=== PATIENT | female | born 2005 | race Two or more races ===

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

== ENCOUNTER 2024-04-21 13:51 | Outpatient (REF) | payer MEDICAID, SELFPAY ==
--- NOTE | ~2024-04-21 | XR_ITS ---
CLINICAL HISTORY: LEFT KNEE PAIN Exam: AP, lateral, tunnel, and sunrise views of the left knee. Comparison: None. Findings: Bony alignment is anatomic. No fracture or joint effusion. Joint spaces are well preserved. Impression: Negative left knee radiographs. This document has been electronically signed by: Sami Retana MD on 04/22/2024 10:04:43
--- NOTE | ~2024-04-21 | XR_ITS ---
CLINICAL HISTORY: LEFT HIP PAIN 2 view left hip Comparison: None Findings: The bones are intact. No significant arthritic change. The soft tissues are unremarkable. IMPRESSION: No acute findings. This document has been electronically signed by: Murray Moore MD on 04/22/2024 08:45:25
--- OUTSIDE RECORDS SUMMARY | 2024-04-21 15:59 | XMS_ITS | Clinical Summary ---
Author Organization [employer] Address [address] [place] [address] Care Team Providers Care Correspondent Name Role Phone [facility] Primary Care Provider [phone] Allergies No known active allergies Medications polyethylene glycol, PEG, 3350 (Glycolax, Miralax) powderIndication s:Constipation, unspecified constipation type Take 17 g by mouth if needed each day (constipation). 510 g Active L norgest/e.estrad iol-e.estrad (Seasonique) 0.15-0.03 &0.01 MG tablet tabletIndication s:Dysmenorrhea,M enorrhagia with regular cycle Take 1 tablet by mouth Once per day. Take continuously to not have period, skip last 7 pills of pack. 91 tablet 4 4 Active Additional Information Patient not taking.Reported on 04/18/2024 Active Problems Problem Noted Date Diagnosed Date Moderate episode of recurrent major depressive d isorder 07/27/2023 Menorrhagia with regular cycle 07/27/2023 Dysmenorrhea 07/27/2023 Encounters Date Type Department Care Team Description 04/18/2024 11:20 AM EST Office Visit [facility] [address] [place] [address] [facility] Left hip pain (Primary Dx); Left-sided low back pain with left-sided sciatica, unspecified chronicity; Chronic pain of left knee 04/16/2024 Travel from Last 3 Months Family History Medical History Relation Name Comments No Known Problems Father Coronary artery disease Maternal Grandmother No Known Problems Mother Cancer Neg Hx Relation Name Status Comments Father Alive Maternal Grandmother Mother Alive Social History Tobacco Use Types Packs/Day Years Used Date Smoking Tobacco: Never Passive Smoke Exposure: Current Smokeless Tobacco: Never Alcohol Use Standard Drinks/Week Comments Never 0 (1 standard drink = 0.6 oz pur e alcohol) Depression Answer Date Recorded Patient Health Questionnaire-9 Score 15 07/27/2023 Patient Health Questionnaire-9 Score 15 07/27/2023 Last PHQ-9: Questionnaire Data Not on file 0 07/27/2023 Housing Stability Answer Date Recorded What is your housing situation today? I have gregg irene 07/27/[address] you li ve. Do you have problems with any of the following? None of the above 07/27/2023 Food Insecurity Answer Date Recorded Within the past 12 months, y ou worried that your food would run out before you got money to buy more: Never True 07/27/2023 Within the past 12 months,th e food you bought just didn't last and you didn't have enough money to get more: Never True Transportation Answer Date Recorded In the past 12 months, has l ack of transportation kept you from medical appts, meetings, work or from getting things needed for daily living? No 07/27/2023 Utilities Answer Date Recorded In the past 12 months, has t he electric, gas, oil or water company threatened to shut off services in your home? No 07/27/2023 Depression Answer Date Recorded Patient Health Questionnaire-2 Score 3 07/27/2023 Comments No Sex and Gender Information Value Date Recorded Sex Assigned at Female 2023 12:16 PM EST Legal Sex Female 2:45 PM EDT Gender Identity Female 2023 12:16 PM EST Sexual Orientation Straight 2023 12 :16 PM EST Last Filed Vital Signs Vital Sign Reading Time Taken Comments Blood Pressure 123/85 04/18/2024 11:05 AM EST Pulse 79 04/18/2024 11:05 AM EST Temperature 37.4 ??C (99.4 ??F) 04/18/2024 1 1:05 AM EST Respiratory Rate 19 04/18/2024 11:0 5 AM EST Oxygen Saturation 98% 04/18/2024 11: 05 AM EST Inhaled Oxygen Concentration - - Weight 59.3 kg (130 lb 11.7 oz) 025 11:05 AM EST Height 160.7 cm (5' 3.25 ) 07/27/2023 8:14 AM ED T Body Mass Index 22.98 07/27/2023 8:14 AM EDT Plan of Treatment Health Maintenance Due Date Last Done Comments Alcohol/Substance Use Screening 2016 Family Planning (PISQ) 01/02/2019 HPV Vaccines (1 - 3-dose series) 01/02/2019 Hepatitis C Screening 01/02/2022 DTaP/Tdap/Td Vaccines (1 - Tdap) 01/02/2023 Hepatitis B Vaccines (1 of 3 - 19+ 3-dose series) 01/02/2023 COVID-19 Vaccine ( - 2023-2 5 season) 2023 09/26/2021, 09/04/2020, 08/07/2020 Influenza Vaccine (#1) 2023 Depression Monitoring (PHQ-9) 01/26/2024, 07/27/2023 Chlamydia and Gonorrhea Screening 07/26/2024 07/27/2023 Depression Screening 07/26/2024 07/27/2023, 07/27/2023 SDOH Screening 07/26/2024 07/27/2023 Tobacco Screening 04/18/2025 04/18/2024 Zoster Vaccines (1 of 2) 01/02/2054 RSV Patients and Patients Aged 60 years or older (1 - 1-dose 75+ series) 01/02/2079 HIV Screening Completed 10/05/2023 HIB Vaccines Aged Out No longer eligi ble based on patient's age to complete this topic Hepatitis A Vaccines Aged Out No long er eligible based on patient's age to complete this topic IPV Vaccines Aged Out No longer eligi ble based on patient's age to complete this topic Meningococcal Vaccine Aged Out No daphne any eligible based on patient's age to complete this topic Pneumococcal Vaccine: Pediatrics (0 to 5 Years) and At-Risk Patients (6 to 49) Years) Aged Out No longer eligible b ased on patient's age to complete this topic RSV under 20 months Aged Out No longe r eligible based on patient's age to complete this topic Rotavirus Vaccines Aged Out No longer eligible based on patient's age to complete this topic Procedures Procedure Name Priority Date/Time Associated Diagnosis Comments HIV P24 ANTIGEN/ANTIBODY WITH REFLEX TO CONFIRMATION Routine 10/05/2023 9:52 AM EDT Screen for STD (sexually transmitted disease) CHLAMYDIA/N. GONORRHOEAE RNA, TMA, UROGENITAL Routine 07/27/2023 9:00 AM EDT from Last 3 Months or Most Recently Relevant to Health Maintenance Results * HIV p24 Antigen/Antibody With Reflex to Confirmation (10/05/2023 9:52 AM EDT) HIV Ab/p24 Ag Screen Non Reactive Non Reactive [facility] Comment: HIV-1/HIV-2 antibodies and HIV-1 p24 antigen were NOT detected. There is no laboratory evidence of HIV infection. HIV Negative Blood Venous blood specimen / Unknown 10/05/2023 9:52 AM EDT 10/05/2023 Narrative [facility] 1 - 10/06/2023 10:05 AM EDT Performed at: ??01 - [facility] [address], [address], [place], [place] [id number] Lumber Straightened: Harry Hwang MD, Phone: ??[phone] [facility] LAB BLOOD ORDERABLES Shavon l Result [facility] * Chlamydia/N. Gonorrhoeae RNA, TMA, Urogenitial (07/27/2023 9:00 AM EDT) Chlamydia trachomatis RNA, TMA, Urogenital Negative Negative [facility] 1 Neisseria gonorrhoeae RNA, TMA, Urogenital Negative Negative [facility] 1 07/27/2023 9:00 AM EDT 07/27/2023 Narrative [facility] 1 - 08/03/2023 10:06 AM EDT Performed at: ??01 - [facility] [address], [address], [place], [place] ??[id number] L[employer] Straightened: Harry Hwang MD, Phone: ??[phone] Terri Michael [facility] LAB MICROBIOLOGY - GENERA L ORDERABLES Final Result [facility] 1 from Last 3 Months or Most Recently Relevant to Health Maintenance Insurance [facility] [address] [place] [address] [facility] [employer] Member Subscriber Plan / Payer (Ef fective 2022-Present) Name:Frieda Franklin Relation to Subscriber:Child Name:MAYRA FRANKLIN Date of :1976 (Home) Address: [address] [place] [address] Payer ID:Not on file Group ID:Not on file Type:Not on file Address: [address] Atten: [place] [address] Care Teams Correspondent Relationship Specialty Start Date End Date Terri Michael FNP [address] [address] PCP - General Family Medicine 06/22/23
--- OUTSIDE RECORDS SUMMARY | 2024-04-21 15:59 | XMS_ITS | Encounter Summary ---
Author Organization [employer] Address [address] [facility] 7t [place] [address] Care Team Providers Care Credit Report Checker Name Role Phone Terri Michael Primary Care Provider [phone] [phone] Reason for Referral * Consultation (Routine) - Pending Review Specialty Diagnoses / Procedures Referred By William jara Referred To Contact Orthopaedic Surgery Diagnoses Left hip pain Left-sided low back pain with left-sided sciatica, unspecified chronicity Chronic pain of left knee Terri Michael FNP [address] [place], [place] Phone: tel: fax: [facility] [address] [place] [address] Phone: tel: Referral ID Status Reason Start Date Expiration Date Visits Requested Visits Authorized [id number] Pending Review Specialty Services Required 04/18/2024 04/18/2025 1 1 * Imaging (Routine) - Pending Review Specialty Diagnoses / Procedures Referred By William jara Referred To Contact Radiology Diagnoses Left hip pain Procedures XR Hip 2 or 3 Views Left Terri Michael FNP [address] [place], [place] Phone: tel: fax: [facility], [address] Phone: tel: fax: Referral ID Status Reason Start Date Expiration Date V isits Requested Visits Authorized [id number] Pending Review 04/18/2024 04/18/2025 1 1 * Imaging (Routine) - Pending Review Specialty Diagnoses / Procedures Referred By William jara Referred To Contact Radiology Diagnoses Left hip pain Chronic pain of left knee Procedures XR Knee 4+ Views Left Terri Michael FNP [address] [place] [address] Phone: tel: fax: [facility], [address] Phone: tel: fax: Referral ID Status Reason Start Date Expiration Date V isits Requested Visits Authorized [id number] Pending Review 04/18/2024 04/18/2025 1 1 Reason for Visit * Reason Comments Knee Pain Encounter Details Date Type Department Care Team (Late st Contact Info) Description 04/18/2024 11:20 AM EST Office Visit [place] [facility] [address] [place] [address] Terri Michael FNP [address] [place] [address] Left hip pain (Primary Dx); Left-sided low back pain with left-sided sciatica, unspecified chronicity; Chronic pain of left knee Social History Tobacco Use Types Packs/Day Years [...] your housing situation today? I have gregg bonilla 07/27/[address] you li [...] the past 12 months, has t he [employer], gas, oil or water company threatened to shut off services in your home? No 07/27/2023 Depression Answer Date Recorded Patient Health Questionnaire-2 Score 3 07/27/2023 Comments No Sex and Gender Information Value Date Recorded Sex Assigned at Female 2023 12:16 PM EST Legal Sex Female 2:45 PM EDT Gender Identity Female 2023 12:16 PM EST Sexual Orientation Straight 2023 12 :16 PM EST documented as of this encounter Last Filed Vital Signs Vital Sign Reading [...] 11.7 oz) 025 11:05 AM EST Height - - Body Mass Index 22.98 07/27/2023 8:14 AM EDT documented in this encounter Patient Instructions * Patient Instructions* TEMO Bello - 04/18/2024 11:20 AM EST Go for xrays (no appointment needed). [facility]. documented in this encounter Progress Notes * TEMO Bello - 04/18/2024 11:20 AM EST Frieda Franklin 2005 [id number] Chief Complaint: Chief Complaint Patient presents with Knee Pain HPI: Frieda [place] ( Frieda ) is a 19 y.o. female here today for Knee Pain. Here with Mom. Chronic left knee pain since she fell in freshman year of high school. Never treated. Has had pain with walking for long periods since. Over the last 1-2 months, having left hip/groin and low back pain. Having some numbness and tingling in left leg. Ibuprofen and heat helps some. Patient Active Problem List Diagnosis Date Noted Moderate episode of recurrent major depressive disorder ([facility]) 07/27/2023 Menorrhagia with regular cycle 07/27/2023 Dysmenorrhea 07/27/2023 Past Medical History: Diagnosis Date Anxiety Depression Current Outpatient Medications on File Prior to Visit Medication Sig Dispense Refill polyethylene glycol, PEG, 3350 (Glycolax, Miralax) powder Take 17 g by mouth if needed each day (constipation). 510 g 0 L norgest/e.estradiol-e.estrad (Seasonique) 0.15-0.03 &0.01 MG tablet tablet Take 1 tablet by mouth Once per day. Take continuously to not have period, skip last 7 pills of pack. (Patient not taking: Reported on 04/18/2024) 91 tablet 4 No current facility-administered medications on file prior to visit. No Known Allergies Past Surgical History: Procedure Laterality Date NO PAST SURGERIES Family History Problem Relation Name Age of Onset No Known Problems Mother No Known Problems Father Coronary artery disease Maternal Grandmother Cancer Neg Hx Social History Tobacco Use Smoking status: Never Passive exposure: Current Smokeless tobacco: Never Vaping Use Vaping status: Some Days Substances: Nicotine Substance Use Topics Alcohol use: Never Drug use: Never Social History Substance and Sexual Activity Sexual Activity Yes Partners: Female, Male control/protection: Condom Male Social History Social History Narrative Born in [place], moved to the [place] at age 11. Lives with Mom and Dad. Graduated high school. In college. Review of Symptoms: Review of Systems Constitutional: Negative for chills and fever. Gastrointestinal: Negative for constipation and diarrhea. Genitourinary: Negative for difficulty urinating. Musculoskeletal: Positive for arthralgias, back pain and myalgias. Neurological: Positive for numbness. Physical Exam: BP 123/85 (BP Location: Right arm, Patient Position: Sitting, BP Cuff Size: Adult) Pulse 79 Temp 99.4 ??F (37.4 ??C) (Temporal) Resp 19 Wt 130 lb 11.7 oz (59.3 kg) LMP 03/02/2024 (Exact Date) SpO2 98% BMI 22.98 kg/m?? Physical Exam Constitutional: General: She is not in acute distress. Appearance: Normal appearance. Pulmonary: Effort: Pulmonary effort is normal. Musculoskeletal: Lumbar back: Tenderness (left) present. Decreased range of motion. Positive left straight leg raisetest. Left hip: Tenderness (over great trochanter) present. Decreased range of motion. Decreased strength(flexion). Left knee: No swelling or crepitus. Normal range of motion. No tenderness. Neurological: Mental Status: She is alert and oriented to person, place, and time. Motor: Weakness (left LE strength 4/5) present. Gait: Gait normal. Deep Tendon Reflexes: Reflex Scores: Patellar reflexes are 2+ on the right side and 2+ on the left side. Achilles reflexes are 2+ on the right side and 2+ on the left side. Psychiatric: Speech: Speech normal. Thought Content: Thought content normal. ASSESSMENT AND PLAN 1. Left hip pain (Primary) Chronic left knee pain, now with left hip and back pain c/w with sciatica. Also with hip tenderness. Xrays ordered. Referral to ortho. Continue ibuprofen. - Referral to Orthopaedic Surgery - XR Knee 4+ Views Left - XR Hip 2 or 3 Views Left 2. Left-sided low back pain with left-sided sciatica, unspecified chronicity - Referral to Orthopaedic Surgery 3. Chronic pain of left knee - Referral to Orthopaedic Surgery - XR Knee 4+ Views Left Follow up if symptoms worsen or fail to improve. Terri Michael, MSN, HOME SERVICE TECHNICIAN-C [address] [address] documented in this encounter Plan of Treatment Scheduled Orders Name Type Priority Associated Diagnoses Orde r Schedule XR Knee 4+ Views Left Imaging Routine Left hip pain Chronic pain of left knee Expected: 04/18/2024, Expires: 04/18/2025 XR Hip 2 or 3 Views Left Imaging Routine Left hip pain Expected: 04/18/2024, Expires: 10/16/2024 Scheduled Referrals Name Type Priority Associated Diagnoses Orde r Schedule Referral to Orthopaedic Surgery Outpatient Referral Routine Left hip pain Left-sided low back pain with left-sided sciatica, unspecified chronicity Chronic pain of left knee Expected: 04/18/2024 (Approximate), Expires: 04/18/2025 documented as of this encounter Visit Diagnoses Diagnosis Left hip pain- Primary Pain in joint, pelvic region and thigh Left-sided low back pain with left-sided sciatica, unspecified chronicity Chronic pain of left knee documented in this encounter Additional Health Concerns Assessment Noted Time PHQ-9 Depression Total Score: 15 024 8:21 AM EDT documented as of this encounter Care Teams Credit Report Checker Relationship Specialty Start Date End Date Terri Michael FNP [address] [place] [address] PCP - General Family Medicine 06/22/23 documented as of this encounter
--- OUTSIDE RECORDS SUMMARY | 2024-04-21 15:59 | XMS_ITS | Encounter Summary ---
Author Organization [employer] Address [address] [facility] 7t [place] [address] Care Team Providers Care Turner And Former Automatic Name Role Phone Terri Michael PLASTIC SEWER Primary Care Provider [phone] Encounter Details Date Type Department Care Team (Latest Contact Info) Description 04/16/2024 Travel Social History Tobacco Use Types Packs/Day Years [...] PM EST documented as of this encounter Plan of Treatment Not on file documented as of this encounter Visit Diagnoses Not on filedocumented in this encounter Additional Health Concerns Assessment Noted Time PHQ-9 Depression Total Score: 15 024 8:21 AM EDT documented as of this encounter Care Teams Turner And Former Automatic Relationship Specialty Start Date End Date Terri Michael, TEMO [address] [place] [address] PCP - General Family Medicine 06/22/23 documented as of this encounter
== END 2024-04-21 13:52 | disposition home or self-care (01) ==
LOC: HO.XRAY 13:51
PROVIDERS: PCP Nurse Practitioner; Visit Provider Nurse Practitioner
DX: M25.552 Pain in left hip (principal); M25.562 Pain in left knee; G89.29 Other chronic pain
CPT/HCPCS: 73502; 73564

== ENCOUNTER → 2024-04-21 14:00 | Outpatient (BNV) | payer MEDICAID, SELFPAY | PROVIDERS: PCP Nurse Practitioner; Visit Provider Radiology Diagnostic Radiology | DX: M25.562 Pain in left knee (principal); M25.552 Pain in left hip | CPT/HCPCS: 73502; 73564 ==

== ENCOUNTER 2024-06-09 09:16 | Outpatient (REF) | payer OTHER, SELFPAY ==
--- OUTSIDE RECORDS SUMMARY | 2024-06-10 10:10 | XMS_ITS | Clinical Summary ---
Author Organization [employer] Address [address] [facility] 7t [place] [address] Care Team Providers Care Digital Marketing Analyst Name Role Phone [facility] Primary Care Provider [phone] [phone] Allergies No known active allergies Medications polyethylene [...] 04/18/2024 11:20 AM EST Office Visit [place] [facility] [address] [place] [address] [facility] Left hip pain (Primary Dx); Left-sided [...] AM EDT Performed at: ??01 - [facility] [place] [address], [address], [place], [place] ??[id number] Sock Turner: Harry Hwang MD, Phone: ??[phone] [facility] LAB BLOOD ORDERABLES Shavon l Result [facility] 1 * Chlamydia/N. Gonorrhoeae RNA, TMA, Urogenitial (07/27/2023 9:00 AM EDT) Chlamydia trachomatis RNA, TMA, Urogenital Negative Negative [facility] 1 Neisseria gonorrhoeae RNA, TMA, Urogenital Negative Negative [facility] 1 07/27/2023 9:00 AM EDT 07/27/2023 Narrative [facility] 1 - 08/03/2023 10:06 AM EDT Performed at: ??01 - [facility] [address], [address], [place], [place] ??[id number] Sock Turner: Harry Hwang MD, Phone: ??[phone] [facility] LAB MICROBIOLOGY - GENERA L ORDERABLES Final Result [facility] 1 from Last 3 Months or Most Recently Relevant to Health Maintenance Insurance [facility] , [address] [place] [address] [employer] Member Subscriber Plan / Payer (Ef fective 2022-Present) Name:Frieda Franklin Relation to Subscriber:Child Name:AMYRA FRANKLIN Date of :1977 (Home) Address: [address] [place] [address] Payer ID:Not on file Group ID:Not on file Type:Not on file Address: [address] Atten: [place] [address] Care Teams Digital Marketing Analyst Relationship Specialty Start Date End Date Terri Michael, WOODWIND REEDS CUTTER [address] [place] [address] PCP - General Family Medicine 06/22/23
== END 2024-06-09 09:17 | disposition home or self-care (01) ==
LOC: HO.HOSX 09:16
PROVIDERS: Visit Provider Physician Assistant
DX: Z13.89 Encounter for screening for other disorder (principal)

== ENCOUNTER 2024-06-09 09:38 | Outpatient (AMB) | payer OTHER, SELFPAY ==
--- NOTE | 2024-06-09 09:58 | MHC.OFFVIS ---
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 Patient reports her pain presented about 5-6 years ago that recently got worse. States she had a fall that she was never was evaluated. She has pain that radiates through her entire leg to her toes, states at times she will have knee pain or hip pain. She describes her discomfort as a stabbing sensation. Finds the use of a knee sleeve helps. No previous tx. 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 She states his pain has been present for several years. She notices discomfort along the lateral aspect of her hip which radiates down the leg into the knee. She has discomfort with leaning on the left side and also sleeping on the left side. She has occasional discomfort with going up and downstairs and sitting for long periods of time. [facility] Medical History (Updated 06/09/24 @ 10:19 by Sera Jernigan PA-C) No known health problems Social History (Updated 06/09/24 @ 10:01 by Antonia Patel [facility]) Patient Tobacco Use Status: Current someday Tobacco user Current occupational status: unemployed Review of Systems Const All systems reviewed & are unremarkable except as noted in HPI and below Physical Exam Vital Signs: BMI result Body Mass Index 23.0 Const General: cooperative and no acute distress Orientation/consciousness: patient oriented x3 Resp Effort & Inspection: normal respiratory effort and able to speak in complete sentences Cardio Peripheral pulses: Peripheral pulses 2+ throughout Neuro General: patient oriented x3 Extrem Other: Left hip normal to inspection. No pain with ROM of the hip. Pain along the greater trochanter. No pain with hip flexion or abduction.There is no tenderness along the si joint, Negative SLR. NVI. Results Reviewed Results Reviewed: Previous x-rays of the left knee and left hip are negative for any acute or chronic abnormalities. Assessment & Plan Assessment & Plan (1) Chondromalacia of left patella: Code(s): M22.42 - Chondromalacia patellae, left knee Category: Medical (2) Gluteal tendinitis of left buttock: Code(s): M76.02 - Gluteal tendinitis, left hip Category: Medical Plan We discussed options which include PT and NSAIDs. She will proceed with PT and NSAIDs. If symptoms persist she will contact our office, otherwise, prn. Orders: Orders PT Evaluation and Treatment Today M22.42 - Chondromalacia patellae, left knee, M76.02 - Gluteal tendinitis, left hip Medications: Discontinued amoxicillin-pot clavulanate 875-125 mg (Augmentin) Discontinued Reason: Patient no longer taking 1 tab PO BID 10 days 20 tabs 0RF Coding Level of Care Code New Pt Level 3 (07947) Complex EM visit Add On G2211 Diagnoses Chondromalacia of left patella M22.42 Gluteal tendinitis of left buttock M76.02
[2024-06-09 10:03] VITALS: BMI 23.0
--- OUTSIDE RECORDS SUMMARY | 2024-06-09 10:45 | XMS_ITS | Clinical Summary ---
Author Organization [employer] Address [address] [facility] 7t [place] [address] Care Team Providers Care Short Order Cook Name Role Phone [facility] Primary Care Provider [phone] [phone] Allergies No known active allergies Medications polyethylene [...] 04/18/2024 11:20 AM EST Office Visit [place] [address] [place] [address] [facility] Left hip pain (Primary Dx); Left-sided low [...] 08/07/2020 Influenza Vaccine (#1) 2023 Depression Monitoring 01/26/2024 07/27/2023 , 07/27/2023 Chlamydia and Gonorrhea Screening 07/26/2024 07/27/2023 [...] AM EDT Performed at: ??01 - [facility] [place] [address], [address], [place], [place] [id number] Press Officer: Harry Hwang MD, Phone: ??[phone] [facility] LAB BLOOD ORDERABLES Shavon l Result [facility] 1 * Chlamydia/N. Gonorrhoeae RNA, TMA, Urogenitial (07/27/2023 9:00 AM EDT) Chlamydia trachomatis RNA, TMA, Urogenital Negative Negative [facility] 1 Neisseria gonorrhoeae RNA, TMA, Urogenital Negative Negative [facility] 1 07/27/2023 9:00 AM EDT 07/27/2023 Narrative [facility] 1 - 08/03/2023 10:06 AM EDT Performed at: ??01 - [facility] [place] [address], [address], [place], [place] ??[id number] Press Officer: Harry Hwang MD, Phone: ??[phone] [facility] LAB MICROBIOLOGY - GENERA L ORDERABLES Final Result [facility] 1 from Last 3 Months or Most Recently Relevant to Health Maintenance Insurance [facility] , [address] [place] [address] [facility] Member Subscriber Plan / Payer (Ef fective 2022-Present) Name:Frieda Franklin Relation to Subscriber:Child Name:MAYRA FRANKLIN Date of :1976 (Home) Address: [address] [place] [address] Payer ID:Not on file Group ID:Not on file Type:Not on file Address: [address] Atten: [place] [address] Care Teams Short Order Cook Relationship Specialty Start Date End Date Terri Michael, CIVIL LABORATORY TECHNICIAN [address] [place] [address] PCP - General Family Medicine 06/22/23
== END 2024-06-09 10:21 | disposition home or self-care (01) ==
LOC: HO.HOS 09:38
PROVIDERS: PCP Nurse Practitioner; Visit Provider Physician Assistant
DX: M22.42 Chondromalacia patellae, left knee (principal); M76.02 Gluteal tendinitis, left hip
CPT/HCPCS: 99203

== ENCOUNTER 2024-08-12 12:30 | Outpatient (AMB) | payer OTHER, SELFPAY ==
[2024-08-12 12:50] VITALS: BMI 23.0
--- NOTE | 2024-08-12 12:50 | MHC.OFFVIS ---
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 Patient was referred by Katie Michael of [facility], patient was advised to take Ibuprofen. Patient states that February of 2024 is when the pain in the lower back started to flair up. Patient states that in high school is when she fell which caused her lower left side pain. Patient reports that she does have numbness and tingling from hip down to knee. She reports that she never had physical therapy, it was offered but she did not attend. Allergies No Known Allergies Allergy (Verified 08/12/24 12:56) Medication List - Last Reconciled 08/12/24 by Nay Miranda MD No Known Home Meds HPI Comments Details: Reviewed PCP notes. Reported to have started as a left knee injury during freshman of high school year. Has now started to affect left lower back and hip pain early 2024. Still thinks left knee is the main issue. Denies swelling. Sometimes gives out. Back pain is always associated with the knee pain. Denies numbness. Reports pins/needles left knee, left lower back and left ankle. Recent left knee x-ray within normal. Recent left hip x-ray within normal. 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 [facility] Medical History (Updated 08/12/24 @ 13:13 by Nay Miranda MD) Patellofemoral pain syndrome of left knee No known health problems Social History (Updated 06/09/24 @ 10:01 by Antonia Patel [facility]) Patient Tobacco Use Status: Current someday Tobacco user Current occupational status: unemployed Review of Systems Const All systems reviewed & are unremarkable except as noted in HPI and below Physical Exam Vital Signs: BMI result Body Mass Index 23.0 Constitutional: Patient appears to be in no acute distress, well nourished and well developed. MSK: No specific abnormalities found on inspection of the spine and all extremities. Lumbar ROM was full. Tender in left SI joint. Bilateral hip, knee and ankle ROM WNL. Tender along left ITB. No ligamentous laxity or crepitant. No increased effusion. No joint line tenderness. Positive tenderness over left patella. Patellar grind test is positive. Anterior drawer test is negative. Kris test is negative. Posterior drawer test is negative. Valgus and varus stress tests are negative. Edna test is negative. Strength is 5/5 in all muscle groups tested. No increased tone noted. Neurological: Neurologic examination of the upper and lower extremities was nonfocal with intact sensation, muscle stretch reflexes and without focal motor deficits . Lauren?s negative bilaterally. Babinski was down going bilaterally. Clonus was negative. Gait is non-antalgic without loss of balance. Results Reviewed Results Reviewed: Ordering Physician: Katie Michael APRN Date of Service: 04/21/24 Procedure(s): XR hip LT min 2V Accession Number(s): [id number] cc: Katie Michael APRN~ CLINICAL HISTORY: LEFT HIP PAIN 2 view left hip Comparison: None Findings: The bones are intact. No significant arthritic change. The soft tissues are unremarkable. IMPRESSION: No acute findings. This document has been electronically signed by: Murray Moore MD on 04/22/2024 08:45:25 Ordering Physician: Katie Michael APRN Date of Service: 04/21/24 Procedure(s): XR knee LT 4V Accession Number(s): [id number] cc: Katie Michael APRN~ CLINICAL HISTORY: LEFT KNEE PAIN Exam: AP, lateral, tunnel, and sunrise views of the left knee. Comparison: None. Findings: Bony alignment is anatomic. No fracture or joint effusion. Joint spaces are well preserved. Impression: Negative left knee radiographs. This document has been electronically signed by: Sami Retana MD on 04/22/2024 10:04:43 I reviewed records from the following: PCP Ortho Assessment & Plan Assessment & Plan (1) Patellofemoral pain syndrome of left knee: Code(s): M22.2X2 - Patellofemoral disorders, left knee Category: Medical (2) Iliotibial band syndrome, left leg: Code(s): M76.32 - Iliotibial band syndrome, left leg Category: Medical (3) Sacroiliac joint dysfunction of left side: Code(s): M53.3 - Sacrococcygeal disorders, not elsewhere classified Category: Medical Plan Showing signs of left patellofemoral syndrome caused imbalance, leading to left ITB tightness and SI joint dysfunction. Changing the patellar sleeve she is wearing into something with more support for the patellar tendon. Referring to PT to work on patellofemoral pain, tight ITB and SI joint dysfunction. Discussed with patient that is important that she continues home exercise program after PT. No indication for other imaging at this time. Assessment and plan discussed with patient, and patient was agreeable. All questions were answered thoroughly. Follow up 3 months or after PT. Nay [place] MD, BAM Board Certified, [place] Board of Physical Medicine and Rehabilitation (ABPMR) Board Certified, [place] Board of Electrodiagnostic Medicine (ABEM) Orders: Orders PT Evaluation and Treatment Today M22.2X2 - Patellofemoral disorders, left knee, M53.3 - Sacrococcygeal disorders, not elsewhere classified, M76.32 - Iliotibial band syndrome, left leg Coding Level of Care Code New Pt Level 4 (62261) Diagnoses Patellofemoral pain syndrome of left knee M22.2X2 Iliotibial band syndrome, left leg M76.32 Sacroiliac joint dysfunction of left side M53.3
--- OUTSIDE RECORDS SUMMARY | 2024-08-12 14:08 | XMS_ITS | Clinical Summary ---
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 Name Role Phone Terri Michael [facility] Primary Care Provider [phone] Allergies No known active allergies Medications polyethylene [...] Menorrhagia with regular cycle 07/27/2023 Dysmenorrhea 07/27/2023 Family History Medical History Relation Name Comments [...] HPV Vaccines (1 - 3-dose series) 01/02/2019 Meningococcal B Vaccine (1 o f 2 - Standard) 2020 Hepatitis C Screening 01/02/2022 DTaP/Tdap/Td Vaccines (1 - Tdap) 01/02/2023 Hepatitis B Vaccines (1 of 3 - 19+ 3-dose series) 01/02/2023 COVID-19 Vaccine (4 - 2023-2 5 season) 2023 09/26/2021, 09/04/2020, 08/07/2020 Depression Monitoring 01/26/2024 07/27/2023 , 07/27/2023 Chlamydia and Gonorrhea Screening 07/26/2024 07/27/2023 SDOH Screening 07/26/2024 07/27/2023 Influenza Vaccine (Season Ended) 2024 Disability Screening 04/16/2025 04/16/2024 Tobacco Screening 04/18/2025 04/18/2024 Zoster Vaccines (1 [...] Years) and At-Risk Patients (6 to 49) Years Aged Out No longer eligible b ased [...] AM EDT Performed at: ??01 - [facility] [address], [address], [place], [place] [id number] Test Facility Engineer: Harry Hwang MD, Phone: ??[phone] [facility] LAB BLOOD ORDERABLES Shavon l Result Performing Organization Address [facility] Co de Phone Number [facility] 1 * Chlamydia/N. Gonorrhoeae RNA, TMA, Urogenitial (07/27/2023 9:00 AM EDT) Chlamydia trachomatis RNA, TMA, Urogenital Negative Negative [facility] 1 Neisseria gonorrhoeae RNA, TMA, Urogenital Negative Negative [facility] 1 07/27/2023 9:00 AM EDT 07/27/2023 Narrative [facility] 1 - 08/03/2023 10:06 AM EDT Performed at: ??01 - [facility] [address], [address], [place] ??[id number] Test Facility Engineer: Harry Hwang MD, Phone: ??[phone] [facility] LAB MICROBIOLOGY - GENERA L ORDERABLES Final Result Performing Organization Address City/[facility] Co de Phone Number [facility] 1 from Last 3 Months or Most Recently Relevant to Health Maintenance Insurance [employer] [facility] [facility] , [address] [place] [address] [employer] Care Teams Ornamental Iron Worker Helper Relationship Specialty Start Date End Date [facility] [address] [place] [id number] PCP - General Family Medicine 06/22/23
== END 2024-08-12 13:31 | disposition home or self-care (01) ==
LOC: HO.HOS 12:31
PROVIDERS: PCP Nurse Practitioner; Visit Provider Physical Medicine & Rehabilitation
DX: M22.2X2 Patellofemoral disorders, left knee (principal); M76.32 Iliotibial band syndrome, left leg; M53.3 Sacrococcygeal disorders, not elsewhere classified
CPT/HCPCS: 99203

== ENCOUNTER 2024-10-23 13:00 | Outpatient (RCR) | payer OTHER, SELFPAY ==
--- NOTE | 2024-09-04 14:45 | MHC.PT.EP ---
[facility] [place] Office [place] Office [place] Office [address] Simran Tello [address] [phone] F: [phone] F: [phone] F: [phone] F: [phone] Physical Therapy Plan of Care Date of Evaluation: 09/04/24 Date of Surgery: n/a Diagnosis: patellofemoral disorder L knee, sacrococcygeal disorder Assessment: Patient is a 19 year old female presenting to PT with complaints of pain in L knee, hip, and back. Pt reports onset of pain began February 2024 due to a fall from high school. She presents today with impairments in pain, lumbar ROM, hip ROM, LLE strength, core strength. 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 Pt expresses longterm goal of reducing pain, and is motivated to work towards this in PT. Clinical presentation today is most consistent with signs and sx associated with L hip, knee, back apin and pt will benefit from skilled PT 2 week x 4 weeks to address the following problems and impairments noted upon evaluation: pain, lumbar ROM, hip ROM, LLE strength, core strength. These problems limit the patient with the following functional activities: ambulating, stair negotiation, ADLs, bending, lifting. The prescribed treatment plan of care is medically necessary. Co-morbidities of none were identified and taken into considerations of plan of care. Pt was educated on HEP, role of PT, prognosis, POC. Frequency and Duration: The patient will be seen 2 x week x 4 weeks Short Term Goals: Pt will demonstrate centralization of sx in 2 weeks. Pt will demonstrate improved LLE strength by 1/3 grade in 2 weeks. Pt will demonstrate to move through her available hip, knee, lumbar ROM in available range with min to no pain. Partner Cco Goals: Pt will demonstrate improved Juan A score by 10% in 4 weeks for improved functional mobility. Pt will demonstrate ability to ambulate with min to no pain in 4 weeks for return to PLOF. Pt will demonstrate ability to bend and lift with min to no pain in 4 weeks for return to PLOF. Treatment Plan: Modalities to reduce pain, spasms and effusion. Manual therapy to restore motion and function. Therapeutic exercise to improve strength and flexibility. Neuromuscular re-education for posture and balance. Therapeutic activities to return to functional activities of daily living. Electronically signed by: Cornelia Fernandez, PT, DPT, ATC Please sign and return to therapist. Thank you for your referral.
--- NOTE | 2024-10-23 13:44 | MHC.PT.DC ---
[facility] [place] Office [place] Office [place] Office [address] Simran Tello [address] [phone] F: [phone] F: [phone] F: [phone] F: [phone] Physical Therapy Discharge Report Diagnosis: patellofemoral disorder L knee, sacrococcygeal disorder Date of Surgery: n/a Date of Evaluation: 09/04/24 Date of Discharge: 10/23/24 Treatments to Date: 8 Cancellations to Date: 0 No Shows to Date: 0 Discharge Status: Independent with HEP Recommend MD Follow-up Discharge Summary: 10/23/2024: Pt has ongoing pain that continues to fluctuate without any specific pattern. She is able to complete her exercises without significant increase in pain but it does not appear that her pain relief is carrying over to function. At this time max benefits of PT have been provided and skilled PT is no longer indicated. I recommend continuing with HEP at home to maintain gains made thus far and if pain continues to limit function then recommend following up with referring provider. She is in agreement with d/c and plan. Electronically signed by: Cornelia Fernanedz, PT, DPT, ATC Please sign and return to therapist. Thank you for your referral.
== END 2024-10-23 13:45 | disposition home or self-care (01) ==
LOC: HO.PTCHIC 13:00
PROVIDERS: PCP Nurse Practitioner; Visit Provider Physical Medicine & Rehabilitation
DX: M53.3 Sacrococcygeal disorders, not elsewhere classified (principal); M76.32 Iliotibial band syndrome, left leg; M22.2X2 Patellofemoral disorders, left knee
CPT/HCPCS: 97110; 97161

== ENCOUNTER 2024-11-13 10:52 | Outpatient (AMB) | payer OTHER, SELFPAY ==
--- NOTE | 2024-11-13 10:54 | MHC.OFFVIS ---
Vital Signs 11/13/24 10:58 Height 5 ft 3 in Weight 130 lb BMI 23.0 Intake Visit Reasons: OV-LT sided low back pain w/left sided sciatica Intake Note: Frieda is a 19 year old female who presents today as a left sided low back pain w/left sided sciatica. At last visit we referred her to physical therapy and work on at home exercises. At today's visit she states that physical therapy is completed and she feels that she plateaued . Patient states that due to schooling she is doing her at home exercises as needed. She states that she feels better but the pain is now tolerable. Allergies No Known Allergies Allergy (Verified 11/13/24 10:58) Medication List - Last Reconciled 11/13/24 by Nay Miranda MD No Known Home Meds HPI Comments Details: Reviewed PCP notes. Reported to have started as a left knee injury during freshman of high school year, during dance. No MRI back then. Has now started to affect left lower back and hip pain early 2024. Still thinks left knee is the main issue. Denies swelling. Sometimes gives out. Back pain is always associated with the knee pain. Denies numbness. Reports pins/needles left knee, left lower back and left ankle. Recent left knee x-ray within normal. Recent left hip x-ray within normal. 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 Last seen 08/12/24. Still has left hip and left knee pain daily, 6/10, increasing with activity. Goes to [employer]. Finished PT, doing own exercises. 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 MSK: No specific abnormalities found on inspection of the spine and all extremities. Lumbar ROM was full. Tender in left SI joint. Left knee: No ligamentous laxity or crepitant. No increased effusion. Tender on left lateral joint line. Positive tenderness over left patella. Patellar grind test is positive. Anterior drawer test is negative. Kris test is negative. Posterior drawer test is negative. Valgus stress test positive pain laterally. Edna test is negative. Strength is 5/5 in all muscle groups tested. No increased tone noted. Neurological: Neurologic examination of the upper and lower extremities was nonfocal with intact sensation, muscle stretch reflexes and without focal motor deficits . Babinski was down going bilaterally. Clonus was negative. Gait is non-antalgic without loss of balance. Results Reviewed Results Reviewed: Ordering Physician: Katie Michael APRN Date of Service: 04/21/24 Procedure(s): XR hip LT min 2V Accession Number(s): [id number] cc: Katie Michael APRN~ CLINICAL HISTORY: LEFT HIP PAIN 2 view left hip Comparison: None Findings: The bones are intact. No significant arthritic change. The soft tissues are unremarkable. IMPRESSION: No acute findings. This document has been electronically signed by: Murray Moore MD on 04/22/2024 08:45:25 Ordering Physician: Katie Michael APRN Date of Service: 04/21/24 Procedure(s): XR knee LT 4V Accession Number(s): [id number] cc: Katie Michael APRN~ CLINICAL HISTORY: LEFT KNEE PAIN Exam: AP, lateral, tunnel, and sunrise views of the left knee. Comparison: None. Findings: Bony alignment is anatomic. No fracture or joint effusion. Joint spaces are well preserved. Impression: Negative left knee radiographs. This document has been electronically signed by: Sami Retana MD on 04/22/2024 10:04:43 I reviewed records from the following: PCP Ortho Assessment & Plan Assessment & Plan (1) Derangement of lateral meniscus of left knee: Code(s): M23.301 - Other meniscus derangements, unspecified lateral meniscus, left knee Category: Medical (2) Patellofemoral pain syndrome of left knee: Code(s): M22.2X2 - Patellofemoral disorders, left knee Category: Medical (3) Sacroiliac joint dysfunction of left side: Code(s): M53.3 - Sacrococcygeal disorders, not elsewhere classified Category: Medical Plan Left knee pain, initially thought as patellofemoral syndrome. X-ray normal. However has not gotten better with PT. This has become chronic now. I wonder if she actually injured her left lateral meniscus. Patient had undergone adequate conservative management including PT and bracing without improvement of condition. It would be reasonable to obtain further imaging such as MRI. An MRI would help rule out any serious condition, guide treatment and assess prognosis for recovery. Left SI joint tenderness, which I think is biomechanics from left knee pain. No signs of lumbar radiculopathy. Assessment and plan discussed with patient, and patient was agreeable. All questions were answered thoroughly. Follow up after MRI. Nay Miranda MD, BAM Board Certified, [place] [employer] and Rehabilitation (ABPMR) Board Certified, [place] Board of Electrodiagnostic Medicine (ABEM) Orders: Orders MR knee LT wo con Today M22.2X2 - Patellofemoral disorders, left knee, M23.301 - Other meniscus derangements, unspecified lateral meniscus, left knee, M53.3 - Sacrococcygeal disorders, not elsewhere classified Coding Level of Care Code Est Pt Level 4 (49870) Diagnoses Derangement of lateral meniscus of left knee M23.301 Patellofemoral pain syndrome of left knee M22.2X2 Sacroiliac joint dysfunction of left side M53.3
[2024-11-13 10:58] VITALS: BMI 23.0
--- OUTSIDE RECORDS SUMMARY | 2024-11-13 13:00 | XMS_ITS | Clinical Summary ---
Author Organization [email or web address] Address [address] [place] [address] Care Team Providers Care Composition Stone Applicator Name Role Phone Terri Michael [facility] Primary Care Provider [phone] [phone] Allergies No known active allergies Medications polyethylene [...] 79 04/18/2024 11:05 AM EST Temperature 37.4 C (99.4 F) 04/18/2024 11:05 AM EST Respiratory Rate 19 04/18/2024 11:0 [...] of 3 - 19+ 3-dose series) 01/02/2023 Depression Monitoring 01/26/2024 07/27/2023 , 07/27/2023 Chlamydia and Gonorrhea Screening 07/26/2024 07/27/2023 SDOH Screening 07/26/2024 07/27/2023 COVID-19 Vaccine (4 - 2024-2 6 season) 2024 09/26/2021, 09/04/2020, 08/07/2020 Influenza Vaccine (#1) 2024 Disability Screening 04/16/2025 04/16/2024 Tobacco Screening [...] - 10/06/2023 10:05 AM EDT Performed at: - [facility] [place] [address], [address], [place], [place] [id number] High Speed Operator: Harry Hwang MD, Phone: [phone] [facility] LAB BLOOD ORDERABLES Shavon l Result [facility] 1 * Chlamydia/N. Gonorrhoeae RNA, TMA, Urogenitial (07/27/2023 9:00 AM EDT) Chlamydia trachomatis RNA, TMA, Urogenital Negative Negative [facility] 1 Neisseria gonorrhoeae RNA, TMA, Urogenital Negative Negative [facility] 1 07/27/2023 9:00 AM EDT 07/27/2023 Narrative [facility] 1 - 08/03/2023 10:06 AM EDT Performed at: - [facility] [place] [address], [address], [place], [place] [id number] High Speed Operator: Harry Hwang MD, Phone: [phone] [facility] LAB MICROBIOLOGY - GENERA L ORDERABLES Final Result [facility] 1 from Last 3 Months or Most Recently Relevant to Health Maintenance Insurance * Guarantor: Frieda Franklin Account Type Relation to Patient Date of Phone Billing Address Personal/Family Self [address] [place] [id number] [employer] [facility] , [address] [place] [phone] [facility] [employer] Care Teams Composition Stone Applicator Relationship Specialty Start Date End Date [facility] [address] [place] [address] PCP - General Family Medicine 4/26/24
== END 2024-11-13 12:35 | disposition home or self-care (01) ==
LOC: HO.HOS 10:53
PROVIDERS: PCP Nurse Practitioner; Visit Provider Physical Medicine & Rehabilitation
DX: M23.301 Other meniscus derangements, unspecified lateral meniscus, left knee (principal); M22.2X2 Patellofemoral disorders, left knee; M53.3 Sacrococcygeal disorders, not elsewhere classified
CPT/HCPCS: 99214